=== PATIENT | female | born 1995 | race Caucasian/White ===

== ENCOUNTER 2016-12-04 11:01 | Emergency (ER) | payer MEDICAID ==
--- NOTE | 2016-12-04 11:21 | ER Document Report ---
ED Medical Screen (RME) - General Stated Complaint: VAGINAL PAIN Time seen by provider: 11:19 Mode of Arrival: Ambulatory Information source: Patient Notes: 21-year-old female presents to ED for vaginal pain. She states she thinks her IUD is out of place. She said that the pain is making her nausea and vomiting 2 yesterday. She states the pain is a little better today but still hurts and she's nauseated with no vomiting today. Last menstrual period 11/10/2016. States she had the IUD placed 8 weeks after her son was born which was 2015. I have greeted and performed a rapid initial assessment of this patient. A comprehensive ED assessment and evaluation of the patient, analysis of test results and completion of medical decision making process will be conducted by an additional ED providers. - Related Data Allergies/Adverse Reactions: No Known Allergies Allergy (Verified 12/04/16 11:18) Past Medical History Renal/ Medical History: Denies: Hx Pelvic Inflammatory Disease - DENIES HX STD 'S GI Medical History: Reports: Hx Gastroesophageal Reflux Disease Musculoskeltal Medical History: Reports Hx Musculoskeletal Trauma Psychiatric Medical History: Reports: Hx Anxiety Past Surgical History: Reports: Hx Adenoidectomy, Hx Myringotomy, Hx Oral Surgery - wisdom teeth - Immunizations Immunizations up to date: Yes Hx Diphtheria, Pertussis, Tetanus Vaccination: Yes
[2016-12-04 11:55] LABS: APPEARANCE,URINE CLOUDY; BILIRUBIN,URINE NEGATIVE (NEGATIVE); GLUCOSE, URINE NEGATIVE (NEGATIVE); KETONES,URINE NEGATIVE (NEGATIVE); LEUKOCYTE ESTERASE,URINE SMALL (NEGATIVE); NITRITE,URINE NEGATIVE (NEGATIVE); PROTEIN,URINE 30 mg/dL (NEGATIVE); UROBILINOGEN,URINE NEGATIVE mg/dL (<2.0)
[2016-12-04 13:48] LABS: CHLAM PCR NOT DETECTED (NOT DETECT)
--- NOTE | 2016-12-04 14:40 | ER Document Report ---
HPI - HPI Patient complains to provider of: pelvic cramping Onset: Yesterday Onset/Duration: Gradual Quality of pain: Cramping Pain Level: 4 Context: Patient complains of lower pelvic cramping that started yesterday causing her to feel nauseous and vomited 2 episodes. Patient attributes cramping to her IUD placement. Patient states that she had a ParaGard placed 8 weeks ago. Patient states she had similar problems with her Mary that was placed several years ago and had to have it removed as well. Patient denies any concern about STD infection. Patient denies any dysuria or urinary symptoms. Associated Symptoms: Nausea - Pelvic cramping, Vomiting, Other. denies: Fever Exacerbated by: Denies Relieved by: Denies Similar symptoms previously: Yes - discomfort with IUD Recently seen / treated by doctor: No - ROS ROS below otherwise negative: Yes Systems Reviewed and Negative: Yes All other systems reviewed and negative - CONSTITUTIONAL Constitutional: DENIES: Fever, Chills - CARDIOVASCULAR Cardiovascular: DENIES: Chest pain - GASTROINTESTINAL Gastrointestinal: REPORTS: Abdominal Pain - Pelvic cramping, Nausea, Patient vomiting - URINARY Urinary: DENIES: Dysuria - REPRODUCTIVE Reproductive: DENIES: : - MUSCULOSKELETAL Musculoskeletal: DENIES: Back Pain - DERM Skin Color: Normal Skin Problems: None Past Medical History - General Information source: Patient Last Menstrual Period: 11-10-16 - Social History Smoking Status: Unknown if Ever Smoked Chew tobacco use (# tins/day): No Frequency of alcohol use: None Drug Abuse: None Occupation: none Lives with: Family Family History: None Patient has suicidal ideation: No Patient has homicidal ideation: No Renal/ Medical History: Denies: Hx Peritoneal Dialysis, Hx Pelvic Inflammatory Disease - DENIES HX STD'S GI Medical History: Reports: Hx Gastroesophageal Reflux Disease Musculoskeltal Medical History: Reports Hx Musculoskeletal Trauma Psychiatric Medical History: Reports: Hx Anxiety Past Surgical History: Reports: Hx Adenoidectomy, Hx Myringotomy, Hx Oral Surgery - wisdom teeth - Immunizations Immunizations up to date: Yes Hx Diphtheria, Pertussis, Tetanus Vaccination: Yes Vertical Provider Document - CONSTITUTIONAL Agree With Documented VS: Yes Exam Limitations: No Limitations General Appearance: WD/WN, No Apparent Distress - INFECTION CONTROL TRAVEL OUTSIDE OF THE [place] IN LAST 30 DAYS: No - HEENT HEENT: Atraumatic, Normocephalic - NECK Neck: Normal Inspection, Supple - RESPIRATORY Respiratory: Breath Sounds Normal, No Respiratory Distress O2 Sat by Pulse Oximetry: 100 - CARDIOVASCULAR Cardiovascular: Regular Rate, Regular Rhythm, No Murmur - GI/ABDOMEN Gastrointestinal: Abdomen Soft, Abdomen Tender - Mild suprapubic tenderness, No Organomegaly. negative: Abdominal Guarding - REPRODUCTIVE Female Genitalia: Normal Inspection. negative: CMT, Adnexal Pain-Right, Adnexal Pain-Left - BACK Back: Normal Inspection. negative: CVA Tenderness-Right, CVA Tenderness-Left Notes: No vaginal discharge. IUD appears to be lower in the cervical canal - MUSCULOSKELETAL/EXTREMETIES Musculoskeletal/Extremeties: MAEW - NEURO Level of Consciousness: Awake, Alert, Appropriate Motor/Sensory: No Motor Deficit - DERM Integumentary: Warm, Dry, No Rash Course - Re-evaluation Re-evalutation: 12/04/16 14:[address] White, agrees with plan of care. 12/04/16 14:39 IUD removed with gentle traction with ringed forceps. Patient tolerated procedure well. - Vital Signs Vital signs: Temp Pulse Resp BP Pulse Ox 98.1 F 91 16 109/76 100 12/04/16 11:18 12/04/16 11:18 12/04/16 13:00 12/04/16 11:18 12/04/16 11:18 - Laboratory Laboratory results interpreted by me: 12/04/16 11:30 Urine Protein 30 H Ur Leukocyte Esterase SMALL H 12/04/16 14:39 Labs- Entire Visit 12/04/16 12/04/16 11:30 11:30 Urine Color YELLOW Urine Appearance CLOUDY Urine pH 5.0 Ur Specific Garber 1.030 Urine Protein 30 H Urine Glucose (UA) NEGATIVE Urine Ketones NEGATIVE Urine Blood NEGATIVE Urine Nitrite NEGATIVE Urine Bilirubin NEGATIVE Urine Urobilinogen NEGATIVE Ur Leukocyte Esterase SMALL H Urine WBC (Auto) 10 Urine RBC (Auto) 3 Squamous Epi Cells Auto 14 Urine Mucus (Auto) MANY Urine Ascorbic Acid NEGATIVE Urine HCG, Qual NEGATIVE Chlamydia DNA (PCR) NOT DETECTED N.gonorrhoeae DNA (PCR) NOT DETECTED Discharge - Discharge Clinical Impression: Pelvic pain, Encounter for IUD removal Condition: Stable Disposition: HOME, SELF-CARE Instructions: Pelvic Pain ([facility]) Additional Instructions: Return immediately for any new or worsening symptoms Followup with your primary care provider, call tomorrow to make a followup appointment You will need a backup control Follow-up with the health department for further contraceptive management [facility] - 12/[facility]/16
[2016-12-04 14:50] VITALS: BP 105/65
== END 2016-12-04 14:48 | disposition home or self-care (01) ==
LOC: ER 11:01
PROC: 0UPDXHZ Removal of Contraceptive Device from Uterus and Cervix, External Approach (ICD-10-PCS; principal; 2016-12-04)
DX: R10.2 Pelvic and perineal pain (principal); R11.2 Nausea with vomiting, unspecified; Z97.5 Presence of (intrauterine) contraceptive device
CPT/HCPCS: 81001; 81025; 87491; 87591; 99284

== ENCOUNTER 2019-05-24 13:08 | Emergency (ER) | payer MEDICAID ==
--- NOTE | 2019-05-24 13:48 | ER Document Report ---
ED Medical Screen (RME) - General Chief Complaint: Vaginal Bleeding Stated Complaint: VAGINAL BLEEDING Time Seen by Provider: 05/24/19 13:40 [facility] - Follow up as needed Mode of Arrival: Ambulatory Information source: Patient Notes: Patient is an otherwise healthy 23-year-old female presenting to the emergency department with chief complaint of vaginal bleeding. Patient reports she is approximately 14 weeks . She is a G4, P3. She reports vaginal bleeding started this morning with intermittent low abdominal cramping. She describes the bleeding is very light. She has not passed any clots. Exam: Pelvic exam deferred until patient is in a room. Patient calm, cooperative, answering all questions appropriately. Skin warm and dry. I have greeted and performed a rapid initial assessment of this patient. A comprehensive ED assessment and evaluation of the patient, analysis of test results and completion of the medical decision making process will be conducted by additional ED providers. I have specifically instructed the patient or family members with the patient to immediately return to any nursing staff should anything change in the patient's condition or with their chief complaint. This medical record was dictated with voice recognizing software. There may be grammatical, syntax errors that are unintended. TRAVEL OUTSIDE OF THE [place] IN LAST 30 DAYS: No - Related Data Allergies/Adverse Reactions: No Known Allergies Allergy (Verified 05/24/19 13:26) Past Medical History - Social History Frequency of alcohol use: None Drug Abuse: None Renal/ Medical History: Denies: Hx Peritoneal Dialysis, Hx Pelvic Inflammatory Disease - DENIES HX STD'S GI Medical History: Reports: Hx Gastroesophageal Reflux Disease Musculoskeltal Medical History: Reports Hx Musculoskeletal Trauma Psychiatric Medical History: Reports: Hx Anxiety Past Surgical History: Reports: Hx Adenoidectomy, Hx Section, Hx Myringotomy, Hx Oral Surgery - wisdom teeth - Immunizations Immunizations up to date: Yes Hx Diphtheria, Pertussis, Tetanus Vaccination: Yes Physical Exam - Vital signs Vitals: Temp Pulse Resp BP Pulse Ox 98.8 F 97 18 113/69 98 05/24/19 13:36 05/24/19 13:36 05/24/19 13:36 05/24/19 13:36 05/24/19 13:36 Course - Vital Signs Vital signs: Temp Pulse Resp BP Pulse Ox 98.8 F 97 18 113/69 98 05/24/19 13:36 05/24/19 13:36 05/24/19 13:36 05/24/19 13:36 05/24/19 13:36 Doctor's Discharge - Discharge [facility] - Follow up as needed
[2019-05-24 14:20] LABS: ABSOLUTE EOSINOPHILS # (AUTO) 0.1 10^3/uL (0.0-0.6); ABSOLUTE LYMPHOCYTES (AUTO) 1.3 10^3/uL (0.5-4.7); ABSOLUTE MONOCYTES (AUTO) 0.3 10^3/uL (0.1-1.4); ABSOLUTE NEUT (AUTO) 3.4 10^3/uL (1.7-8.2); BASOPHILS % (AUTO) 0.3 % (0-2); EOSINOPHILS % (AUTO) 1.8 % (0-6); HEMATOCRIT 35.3 % (36.0-47.0); HEMOGLOBIN 12.2 g/dL (12.0-15.5); LYMPHOCYTES % (AUTO) 25.9 % (13-45); MEAN CORPUSCULAR HEMOGLOBIN 28.3 pg (27.0-33.4); MEAN CORPUSCULAR HGB CONC 34.5 g/dL (32.0-36.0); MEAN CORPUSCULAR VOLUME 82 fl (80-97); MONOCYTES % (AUTO) 6.4 % (3-13); PLATELET COUNT 209 10^3/uL (150-450); RED BLOOD COUNT 4.29 10^6/uL (3.72-5.28); SEGMENTED NEUTROPHILS % (AUTO) 65.6 % (42-78); TOTAL CELLS COUNTED % (AUTO) 100 %; WHITE BLOOD COUNT 5.2 10^3/uL (4.0-10.5)
[2019-05-24 14:24] LABS: APPEARANCE,URINE SLIGHTLY-CLOUDY; BILIRUBIN,URINE NEGATIVE (NEGATIVE); COLOR,URINE YELLOW; GLUCOSE, URINE NEGATIVE (NEGATIVE); KETONES,URINE NEGATIVE (NEGATIVE); LEUKOCYTE ESTERASE,URINE SMALL (NEGATIVE); NITRITE,URINE NEGATIVE (NEGATIVE); PROTEIN,URINE NEGATIVE (NEGATIVE); URINE SPECIFIC GRAVITY 1.023; UROBILINOGEN,URINE NEGATIVE mg/dL (<2.0)
--- NOTE | 2019-05-24 15:51 | RADIOLOGY REPORT (SQ) ---
EXAM DESCRIPTION: U/S [id number] TRNABD 1GES W/ODOP COMPLETED DATE/TIME: 05/24/2019 3:04 pm REASON FOR STUDY: preg, vag bleeding COMPARISON: None. TECHNIQUE: Transvaginal static and realtime grayscale images acquired of the pelvis. Additional aisha cted spectral and color Doppler images recorded. All images stored on PACs. bHCG: Not available. CLINICAL DATES: EGA LIMITATIONS: None. FINDINGS: FETUS: Single Living intrauterine . ULTRASOUND EGA: 13 weeks 6 days ULTRASOUND ELIANA: 11/23/2019 EFW: Not applicable less than 20 weeks. CRL: 7.83 cm FHR: 150 beats per minute. SURVEY: No visualized anomalies. AMNIOTIC FLUID: Adequate amount. PLACENTA: Not yet developed due to early gestation. SUBCHORIONIC BLEED: No. SIZE OF BLEED: Not applicable. UTERUS: No masses. No anomalies. CERVICAL LENGTH: 3.1 cm Closed. RIGHT ADNEXA: Normal ovary with normal vascular flow. No adnexal free fluid. No adnexal masses. LEFT ADNEXA: Normal ovary with normal vascular flow. No adnexal free fluid. No adnexal masses. FREE FLUID: None. OTHER: No other significant finding. IMPRESSION: LIVING INTRAUTERINE . EGA 13 weeks 6 days Trimester of : First - 0 to 13 weeks. TECHNICAL DOCUMENTATION: JOB ID: [id number] [employer]- All Rights Reserved rev Reading location - IP/workstation name: [email or web address]
--- NOTE | 2019-05-24 17:08 | ER Document Report ---
ED GI/ - General Chief Complaint: Vaginal Bleeding Stated Complaint: VAGINAL BLEEDING Time Seen by Provider: 05/24/19 13:40 [facility]NO [facility] - Follow up as needed Mode of Arrival: Ambulatory Notes: Patient is an otherwise healthy 23-year-old female presenting to the emergency department with chief complaint of vaginal bleeding. Patient reports she is approximately 14 weeks . She is a G4, P3. She reports vaginal bleeding started this morning with intermittent low abdominal cramping. She describes the bleeding is very light. She has not passed any clots. TRAVEL OUTSIDE OF THE [place] IN LAST 30 DAYS: No - Related Data Allergies/Adverse Reactions: No Known Allergies Allergy (Verified 05/24/19 13:26) Past Medical History - General Information source: Patient - Social History Smoking Status: Never Smoker Frequency of alcohol use: None Drug Abuse: None Family History: None Patient has suicidal ideation: No Patient has homicidal ideation: No Renal/ Medical History: Denies: Hx Peritoneal Dialysis, Hx Pelvic Inflammatory Disease - DENIES HX STD'S GI Medical History: Reports: Hx Gastroesophageal Reflux Disease Musculoskeletal Medical History: Reports Hx Musculoskeletal Trauma Psychiatric Medical History: Reports: Hx Anxiety Past Surgical History: Reports: Hx Adenoidectomy, Hx Section, Hx Myringotomy, Hx Oral Surgery - wisdom teeth - Immunizations Immunizations up to date: Yes Hx Diphtheria, Pertussis, Tetanus Vaccination: Yes Review of Systems - Review of Systems Constitutional: No symptoms reported EENT: No symptoms reported Cardiovascular: No symptoms reported Respiratory: No symptoms reported Gastrointestinal: No symptoms reported Genitourinary: No symptoms reported Female Genitourinary: See HPI Musculoskeletal: No symptoms reported Skin: No symptoms reported Hematologic/Lymphatic: No symptoms reported Neurological/Psychological: No symptoms reported Physical Exam - Vital signs Vitals: Temp Pulse Resp BP Pulse Ox 98.8 F 97 18 113/69 98 05/24/19 13:36 05/24/19 13:36 05/24/19 13:36 05/24/19 13:36 05/24/19 13:36 - Notes Notes: PHYSICAL EXAMINATION: GENERAL: Well-appearing, well-nourished and in no acute distress. HEAD: Atraumatic, normocephalic. EYES: Pupils equal round and reactive to light, extraocular movements intact, conjunctiva are normal. ENT: Nares patent, oropharynx clear without exudates. Moist mucous membranes. NECK: Normal range of motion, supple without lymphadenopathy LUNGS: Breath sounds clear to auscultation bilaterally and equal. No wheezes rales or rhonchi. HEART: Regular rate and rhythm without murmurs ABDOMEN: Soft, nontender, nondistended abdomen. No guarding, no rebound. No masses appreciated. Female : deferred Musculoskeletal: Normal range of motion, no pitting or edema. No cyanosis. NEUROLOGICAL: Cranial nerves grossly intact. Normal speech, normal gait. Normal sensory, motor exams PSYCH: Normal mood, normal affect. SKIN: Warm, Dry, normal turgor, no rashes or lesions noted. Course - Re-evaluation Re-evalutation: Laboratory 05/24/19 05/24/19 05/24/19 14:00 14:00 14:00 WBC 5.2 RBC 4.29 Hgb 12.2 Hct 35.3 L MCV 82 MCH 28.3 MCHC 34.5 RDW 14.0 Plt Count 209 Seg Neutrophils % 65.6 Lymphocytes % 25.9 Monocytes % 6.4 Eosinophils % 1.8 Basophils % 0.3 Absolute Neutrophils 3.4 Absolute Lymphocytes 1.3 Absolute Monocytes 0.3 Absolute Eosinophils 0.1 Absolute Basophils 0.0 Beta HCG, Quant 87905.00 H Total Beta HCG POSITIVE Urine Color Urine Appearance Urine pH Ur Specific [place] Urine Protein Urine Glucose (UA) Urine Ketones Urine Blood Urine Nitrite Urine Bilirubin Urine Urobilinogen Ur Leukocyte Esterase Urine WBC (Auto) Urine RBC (Auto) U Hyaline Cast (Auto) Squamous Epi Cells Auto Urine Mucus (Auto) Urine Ascorbic Acid Blood Type B POSITIVE Rhogam Indicated RHOGAM NOT INDICATED 05/24/19 14:00 WBC RBC Hgb Hct MCV MCH MCHC RDW Plt Count Seg Neutrophils % Lymphocytes % Monocytes % Eosinophils % Basophils % Absolute Neutrophils Absolute Lymphocytes Absolute Monocytes Absolute Eosinophils Absolute Basophils Beta HCG, Quant Total Beta HCG Urine Color YELLOW Urine Appearance SLIGHTLY-CLOUDY Urine pH 5.0 Ur Specific [place] 1.023 Urine Protein NEGATIVE Urine Glucose (UA) NEGATIVE Urine Ketones NEGATIVE Urine Blood NEGATIVE Urine Nitrite NEGATIVE Urine Bilirubin NEGATIVE Urine Urobilinogen NEGATIVE Ur Leukocyte Esterase SMALL H Urine WBC (Auto) 8 Urine RBC (Auto) 2 U Hyaline Cast (Auto) 2 Squamous Epi Cells Auto 6 Urine Mucus (Auto) MANY Urine Ascorbic Acid NEGATIVE Blood Type Rhogam Indicated Obstetrics Ultrasound 05/24/19 13:45 IMPRESSION: LIVING INTRAUTERINE . EGA 13 weeks 6 days Trimester of : First - 0 to 13 weeks. Labs as recorded. All test results were discussed with patient. Patient will follow-up with [facility]ORD[facility] as discussed. Patient denies any questions. Patient's vital signs within normal limits at time of discharge. The patient's emergency department workup and current diagnosis were explained to the patient and or family. Follow-up instructions were provided. Medications if prescribed were discussed. Instructions for when to return to the emergency department including specific worrisome symptoms were discussed with the patient and/or family. - Vital Signs Vital signs: Temp Pulse Resp BP Pulse Ox 98.3 F 97 20 108/71 100 05/24/19 17:15 05/24/19 17:15 05/24/19 17:15 05/24/19 17:15 05/24/19 17:15 - Laboratory Result Diagrams: 05/24/19 14:00 Laboratory results interpreted by me: 05/24/19 05/24/19 05/24/19 14:00 14:00 14:00 Hct 35.3 L Beta HCG, Quant 22753.00 H Ur Leukocyte Esterase SMALL H Discharge - Discharge Clinical Impression: Vaginal bleeding during Condition: Stable Disposition: HOME, SELF-CARE Additional Instructions: You were seen in the emergency department today for an episode of vaginal bleeding during . All test results today were normal. The ultrasound was unremarkable. You need to follow-up with your [facility] COORDINATOR in the next 24 to 48 hours. Return to the emergency department with any new or worsening symptoms to include soaking through more than 1 pad per hour for 4 hours consistently, passage of large clots or development of fever. [facility] - Follow up as needed
[2019-05-24 17:16] VITALS: BP 108/71
== END 2019-05-24 17:16 | disposition home or self-care (01) ==
LOC: ER 13:08
DX: O46.91 Antepartum hemorrhage, unspecified, first trimester (principal); Z3A.13 13 weeks gestation of pregnancy
CPT/HCPCS: 36415; 76801; 81001; 84702; 85025; 86900; 86901; 99284

== ENCOUNTER 2020-09-01 11:57 | Emergency (ER) | payer MEDICAID, OTHER ==
[2020-09-01] MEDS ORDERED: ONDANSETRON 4 MG TAB.RAPDIS PO ONE (12:31)
--- NOTE | 2020-09-01 12:33 | ER Document Report ---
ED Medical Screen (RME) - General Stated Complaint: VAGINAL PAIN Time Seen by Provider: 09/01/20 12:31 Notes: Patient presents complaining of left lower pelvic pain for the past 3 days. Patient states the pain makes her nauseous. Patient denies any bleeding or vaginal discharge. Patient denies any fever. Patient denies any vomiting or diarrhea. No urinary symptoms. I have greeted and performed a rapid initial assessment of this patient. A comprehensive ED assessment and evaluation of the patient, analysis of test results and completion of the medical decision making process will be conducted by additional ED providers. TRAVEL OUTSIDE OF THE [place] IN LAST 30 DAYS: No - Related Data Allergies/Adverse Reactions: No Known Allergies Allergy (Verified 05/24/19 13:26) Past Medical History Renal/ Medical History: Denies: Hx Peritoneal Dialysis, Hx Pelvic Inflammatory Disease - DENIES HX STD'S GI Medical History: Reports: Hx Gastroesophageal Reflux Disease Musculoskeltal Medical History: Reports Hx Musculoskeletal Trauma Psychiatric Medical History: Reports: Hx Anxiety Past Surgical History: Reports: Hx Adenoidectomy, Hx Section, Hx Myringotomy, Hx Oral Surgery - wisdom teeth - Immunizations Immunizations up to date: Yes Hx Diphtheria, Pertussis, Tetanus Vaccination: Yes Physical Exam - Vital signs Vitals: Temp Pulse Resp BP Pulse Ox 98.3 F 100 16 122/80 98 09/01/20 12:02 09/01/20 12:02 09/01/20 12:02 09/01/20 12:02 09/01/20 12:02 - Abdominal Tenderness: Tender - Left lower pelvic Course - Vital Signs Vital signs: Temp Pulse Resp BP Pulse Ox 98.3 F 100 16 122/80 98 09/01/20 12:02 09/01/20 12:02 09/01/20 12:02 09/01/20 12:02 09/01/20 12:02
[2020-09-01 13:05] LABS: APPEARANCE,URINE SLIGHTLY-CLOUDY; BILIRUBIN,URINE NEGATIVE (NEGATIVE); COLOR,URINE YELLOW; GLUCOSE, URINE NEGATIVE (NEGATIVE); KETONES,URINE NEGATIVE (NEGATIVE); LEUKOCYTE ESTERASE,URINE NEGATIVE (NEGATIVE); NITRITE,URINE NEGATIVE (NEGATIVE); PROTEIN,URINE NEGATIVE (NEGATIVE); UROBILINOGEN,URINE NEGATIVE mg/dL (<2.0)
--- NOTE | 2020-09-01 14:50 | RADIOLOGY REPORT (SQ) ---
EXAM DESCRIPTION: U/S NON OB PEL W/DOPPLER IMAGES COMPLETED DATE/TIME: 09/01/2020 2:24 pm REASON FOR STUDY: LLQ pain COMPARISON: None. TECHNIQUE: Dynamic and static grayscale images acquired of the pelvis via transabdominal approach an d recorded on PACS. Additional selected color Doppler and spectral images recorded. LIMITATIONS: None. FINDINGS: UTERUS: Contour normal. No mass. ENDOMETRIAL STRIPE: No focal or generalized thickening. No masses. An intrauterine device is present , it appears to be in the lower uterine segment. CERVIX: No nabothian cysts. RIGHT OVARY AND DOPPLER: Normal size with a dominant follicle. No worrisome masses. Normal arterial v ascular flow without evidence for torsion. LEFT OVARY AND DOPPLER: Normal size. No worrisome masses. Normal arterial vascular flow without evide nce for torsion. FREE FLUID: None noted. OTHER: No other significant finding. MEASUREMENTS: UTERUS: 11.3 x 7.7 x 4.9 cm ENDOMETRIAL STRIPE: 10 mm RIGHT OVARY: 3.5 x 2.7 x 2.3 cm LEFT OVARY: 2.4 x 2.2 x 1.6 cm IMPRESSION: Intrauterine device appears to be in the lower uterine segment. Otherwise, unremarkable pelvic ultrasound. TECHNICAL DOCUMENTATION: JOB ID: [id number] 2010 [employer]- All Rights Reserved Rev Reading location - IP/workstation name: [email or web address]
[2020-09-01 16:10] VITALS: BP 121/70
[2020-09-01 16:15] LABS: ABSOLUTE EOSINOPHILS # (AUTO) 0.2 10^3/uL (0.0-0.6); ABSOLUTE LYMPHOCYTES (AUTO) 2.1 10^3/uL (0.5-4.7); ABSOLUTE MONOCYTES (AUTO) 0.5 10^3/uL (0.1-1.4); ABSOLUTE NEUT (AUTO) 5.9 10^3/uL (1.7-8.2); BASOPHILS % (AUTO) 0.4 % (0-2); EOSINOPHILS % (AUTO) 2.6 % (0-6); HEMATOCRIT 42.9 % (36.0-47.0); HEMOGLOBIN 15.1 g/dL (12.0-15.5); LYMPHOCYTES % (AUTO) 23.8 % (13-45); MEAN CORPUSCULAR HEMOGLOBIN 29.9 pg (27.0-33.4); MEAN CORPUSCULAR HGB CONC 35.2 g/dL (32.0-36.0); MEAN CORPUSCULAR VOLUME 85 fl (80-97); MONOCYTES % (AUTO) 5.2 % (3-13); PLATELET COUNT 246 10^3/uL (150-450); RED BLOOD COUNT 5.05 10^6/uL (3.72-5.28); RED CELL DISTRIBUTION WIDTH 12.9 % (11.5-14.0); TOTAL CELLS COUNTED % (AUTO) 100 %; WHITE BLOOD COUNT 8.6 10^3/uL (4.0-10.5)
[2020-09-01 16:35] LABS: ALBUMIN 4.7 g/dL (3.5-5.0); ALKALINE PHOSPHATASE 76 U/L (38-126); ANION GAP 12 (5-19); ASPARTATE AMINO TRANSFERASE 23 U/L (14-36); BILIRUBIN,DIRECT 0.2 mg/dL (0.0-0.4); BILIRUBIN,TOTAL 1.5 mg/dL (0.2-1.3); BLOOD UREA NITROGEN 9 mg/dL (7-20); CALCIUM 9.9 mg/dL (8.4-10.2); CARBON DIOXIDE 27 mmol/L (22-30); CHLORIDE 100 mmol/L (98-107); GLUCOSE 93 mg/dL (75-110); POTASSIUM 4.9 mmol/L (3.6-5.0); TOTAL PROTEIN 7.8 g/dL (6.3-8.2)
[2020-09-01 17:44] LABS: CHLAM PCR NOT DETECTED (NOT DETECT)
[2020-09-01 21:33] LABS: BACTERIA (WET MOUNT) 3+ BACTERIA SEEN; T.VAGINALIS (WET MOUNT) NO TRICHOMONAS SEEN; WBCS (WET MOUNT) 4+ WBCS SEEN; YEAST (WET MOUNT) NO YEAST SEEN
--- NOTE | 2020-09-01 22:26 | ER Document Report ---
ED General - General Chief Complaint: Abdominal Pain Stated Complaint: VAGINAL PAIN Time Seen by Provider: 09/01/20 12:31 Notes: 25-year-old female history of IUD in place, 3 vaginal births presents with gradual onset gradually worsening left pelvic pain and midline pelvic pain feels like cramping has been constant over the past 3 days without radiation or associated symptoms. Patient denies any vaginal bleeding, vaginal discharge, fever, vomiting, diarrhea, constipation, melena, bright red blood per rectum, dysuria, frequency, recent , trauma, foreign bodies. Patient monogamous with . TRAVEL OUTSIDE OF THE [place] IN LAST 30 DAYS: No - Related Data Allergies/Adverse Reactions: No Known Allergies Allergy (Verified 05/24/19 13:26) Past Medical History - General Information source: Patient - Social History Smoking Status: Never Smoker Chew tobacco use (# tins/day): No Frequency of alcohol use: None Drug Abuse: None Family History: None Renal/ Medical History: Denies: Hx Peritoneal Dialysis, Hx Pelvic Inflammatory Disease - DENIES HX STD'S GI Medical History: Reports: Hx Gastroesophageal Reflux Disease Musculoskeletal Medical History: Reports Hx Musculoskeletal Trauma Psychiatric Medical History: Reports: Hx Anxiety Past Surgical History: Reports: Hx Adenoidectomy, Hx Section, Hx Myringotomy, Hx Oral Surgery - wisdom teeth - Immunizations Immunizations up to date: Yes Hx Diphtheria, Pertussis, Tetanus Vaccination: Yes Review of Systems - Review of Systems Notes: REVIEW OF SYSTEMS: CONSTITUTIONAL : Denies fever, chills, or sweats. EENT: Denies recent cold/sinus symptoms, denies throat pain CARDIOVASCULAR: Denies chest pain, TALIA RESPIRATORY: Denies cough, denies shortness of breath. GASTROINTESTINAL: Denies abdominal pain, nausea/vomiting. GENITOURINARY: Denies difficulty urinating, painful urination. FEMALE GENITOURINARY: Denies abnormal vaginal bleeding, vaginal discharge. MUSCULOSKELETAL: Denies neck pain, back pain. SKIN: Denies rash or skin lesions. HEMATOLOGIC : Denies easy bruising or bleeding. LYMPHATIC: Denies swollen, enlarged glands. NEUROLOGICAL: Denies headache, denies change in gait. PSYCHIATRIC: Denies anxiety or stress or depression. Physical Exam - Vital signs Vitals: Temp Pulse Resp BP Pulse Ox 98.3 F 100 16 122/80 98 09/01/20 12:02 09/01/20 12:02 09/01/20 12:02 09/01/20 12:02 09/01/20 12:02 - Notes Notes: PHYSICAL EXAMINATION: GENERAL: Well-appearing, well-nourished and in no acute distress. HEAD: Atraumatic, normocephalic. EYES: Pupils equal round and appropriate constriction, sclera anicteric, conjunctiva are normal. ENT: nares patent, moist mucous membranes. NECK: Normal range of motion, supple without lymphadenopathy LUNGS: Normal respiratory rate and effort, speaking in full sentences HEART: Regular rate, no JVD, no lower extremity edema ABDOMEN: Soft, nontender, no guarding, no masses, no CVAT PELVIC: Normal external genitalia, moderate amount white discharge in vaginal vault, no vaginal bleeding, normal office inspection, no discharge from os, unable to visualize IUD strings, no CMT, no adnexal tenderness EXTREMITIES: Normal range of motion, no pitting or edema. No cyanosis. NEUROLOGICAL: Awake, alert, conversing appropriately, moves all extremities spontaneously. PSYCH: Normal mood, normal affect. SKIN: Warm, Dry, normal turgor, no rashes or lesions noted. Course - Re-evaluation Re-evalutation: 09/01/20 22:24 Some discharge on exam but no risk factors for GC so sent specimen to lab, no indication to empirically treat at this time. Ultrasound without any ovarian abnormalities, does show IUD in lower uterine segment. This is likely cause of patient's pain, I discussed this with trombone slide assembler on-call Dr. Caldwell who says she will have patient follow-up in office either tomorrow or the next day. This is reasonable as there is no sign of uterine rupture or infection secondary to IUD displacement. Patient's pain is adequately managed and no other symptoms. Patient is agreeable to this plan, will call in mid morning tomorrow for follow- up. Gave patient extensive return to ED precautions which she demonstrated understanding of, patient ready for discharge. - Vital Signs Vital signs: Temp Pulse Resp BP Pulse Ox 98.1 F 95 16 121/70 100 09/01/20 16:09 09/01/20 16:09 09/01/20 16:09 09/01/20 16:09 09/01/20 16:09 - Laboratory Result Diagrams: 09/01/20 15:58 09/01/20 15:58 Laboratory results interpreted by me: 09/01/20 15:58 Total Bilirubin 1.5 H Discharge - Discharge Clinical Impression: Pelvic pain IUD mechanical complication Qualifiers: Mechanical complication type: displacement Encounter type: initial encounter Qualified Code(s): T83.32XA - Displacement of intrauterine contraceptive device, initial encounter Disposition: HOME, SELF-CARE Additional Instructions: Pelvic Pain There are many causes of pain in the pelvic area. The cause could be the tubes, ovaries, uterus, intestines, appendix, pelvic muscles and connective tissue, or the urinary tract. The cause of your pelvic pain is not clear. However, it seems safe to treat you outside the hospital. If the pain sounds like a temporary problem, we sometimes wait to see if it goes away. Other patients may need additional tests, such as pelvic ultrasound or cultures. Conditions may change. Call us or come back for reexamination if any problems occur, such as: (1) Pain that becomes more severe, steady, or becomes concentrated in one specific area. Also, pain that is more severe with movement or coughing. (2) Vomiting that persists or becomes more frequent. (3) Blood in the vomitus, urine, or bowel movements. Blood in the stool may have a tarry or black appearance. (4) Shaking chills or fever greater than 100 degrees. (5) The abdomen becomes more distended or swollen. (6) Bowel movements cease. (7) Heavy vaginal bleeding. [facility] [phone] to schedule follow-up tomorrow or next day. Tell them that you were seen in the emergency department and this was discussed with Dr. Caldwell. Return to the emergency department immedi ately if you have any worsening pain, change in symptoms, fever, vomiting, uncontrollable pain, or any other worsening or alarming symptoms. Your bilirubin was slightly high during this visit, discuss this with your primary doctor. Follow-up with primary doctor within 1 week. Forms: Return to Work
[2020-09-01 23:03] LABS: CHLAM PCR NOT DETECTED (NOT DETECT)
== END 2020-09-01 22:48 | disposition home or self-care (01) ==
LOC: ER 11:57
DX: T83.32XA Displacement of intrauterine contraceptive device, initial encounter (principal); Y76.8 Miscellaneous obstetric and gynecological devices associated with adverse incidents, not elsewhere classified; R10.2 Pelvic and perineal pain
CPT/HCPCS: 36415; 76856; 80053; 81001; 84703; 85025; 87210; 87491; 87591; 93976; 99285